=== PATIENT | female | born 1970 | race Caucasian/White ===

== ENCOUNTER 2023-11-15 18:22 | Emergency (ER) | payer OTHER, SELFPAY ==
[2023-11-15 18:24] VITALS: BP 133/92; BMI 27.4
--- NOTE | 2023-11-15 19:05 | ED.MUSCINJ ---
HPI-Injury
General
Chief Complaint: Extremity Pain (non-traumatic)
Time Seen by Provider: 11/15/23 18:59
Travel History
Have you had any contact with someone who has COVID-19?: No
Do you have any symptoms of coronavirus? Fever > 100 degrees, chills, cough, shortness of breath, sore throat, loss of taste or smell, muscle aches, or headache?: No
History of Present Illness-Injury
Initial Injury comments:
53-year-old female with no reported chronic medical problems here today for evaluation of left ankle pain x 1 day. She does not specifically recall any injuries but feels she may have incidentally sprained her ankle. Pain is noted laterally. No
pain noted elsewhere. No fevers. She has been able to ambulate. No numbness/tingling.
Past History
Past History
ED Past Medical History: Psychiatric (A/D, ADHD) and Other (fibroids)
ED Past Surgical History: Cholecystectomy and
Social History
Tobacco: Smoker
Alcohol: None
Drug: None
Review of Systems
Review of Systems
All Other Systems: ROS reviewed and negative except as documented in HPI and ROS
Phy Exam
Physical Exam
Physical Exam:
GENERAL: Alert , in no apparent distress
EYE: pupils equal and reactive
NECK: Supple, no significant adenopathy.
ENT: o/p clr, mmm.
CARDIAC: Regular rate and rhythm .
LUNGS: Clear breath sounds bilaterally, no acute respiratory distress, no wheezes/rales/rhonchi
NEUROLOGICAL: Alert and oriented, no focal neuro deficits
SKIN: Warm and dry, skin intact.
MUSCULOSKELETAL: Mild tenderness to palpation along the lateral aspect of the left ankle joint with a small amount of swelling, no ecchymosis, no tenderness elsewhere, pulses 2+ throughout, sensation and motor intact
PSYCH: Normal and appropriate interaction.
Injury Course
Orders/Labs/Results
Orders:
Orders
11/15/23 18:26
Ankle, left 3 view CR [CR Ankle - Left Min 3 Views ] Urgent
Comment:
Reason For Exam: pain
11/15/23 20:11
Ortho Boot Left- Treatment ONCE
Short or tall?: Short
MDM/Problems Addressed
Differential Diagnosis Includes:
53-year-old female with no reported chronic medical problems here today for evaluation of left ankle pain x 1 day. Overall, patient appears well. Physical examination described above. Patient neurologically intact. Will begin with x-rays.
11/15/2023 20:14: X-rays negative aside from swelling. No fracture. Will place patient in a walking boot and recommend supportive care, RICE, and orthopedic follow-up. All questions answered. Stable for discharge.
*Critical Care Note
Total Time (30-74mins, 75-104mins- exclusive of procedures): Not Applicable
ED Attending Note
-
Portions of this chart may have been created with voice recognition software.� Occasional wrong word or��sound alike� substitutions may have occurred due to the inherent limitations of voice recognition software.
Discharge Plan
Departure
Patient Disposition: Home (Routine Discharge)
Date of Disposition: 11/15/23
Time of Disposition: 20:11
Patient with high blood pressure during this ER visit?: No
Condition: Good
Covid-19: Not Applicable
Discharge Problem:
Acute left ankle pain, Left ankle swelling
Instructions: Ankle Sprain ED
Prescriptions:
No Action
clonazepam 0.5 MG tablet
0.5 mg PO DAILY PRN (Reason: anxiety)
dextroamphetamine-amphetamine [Adderall XR] 20 MG capsule,extended release 24hr
20 mg PO DAILY
escitalopram oxalate 20 MG tablet
20 mg PO DAILY
gabapentin [Gralise] 600 MG tablet extended release 24 hr
600 mg PO QID
benzonatate 100 mg capsule
100 mg PO TID PRN (Reason: cough) Qty: 20 0RF
meloxicam 15 mg tablet
15 mg PO DAILY Qty: 20 0RF
Referrals:
Juan Lr MD [Active] - Follow up in 5-7 days
NONE,* [Active] -
Activity Restrictions/Additional Instructions:
You were seen today for evaluation of ankle pain.
Your x-ray reveals swelling without fracture.
We are placing you in a boot. Avoid prolonged walking and standing.
Apply ice to the area. Take [id number] ibuprofen and Tylenol as directed as needed.
Follow-up with orthopedics within 5 to 7 days for close reevaluation.
Return for new, worsening, or concerning symptoms.
Interventions
Interventions:
*Risk Screen - Suicide Last Done: 11/15/23 18:24
*General Assessment Last Done: 11/15/23 19:09
*Neglect/Abuse Screening Last Done: 11/15/23 18:24
*ED COVID-19 Vaccine History Last Done: 11/15/23 18:24
ED-Musculoskeletal Assessment Last Done: 11/15/23 19:03
ED-Peripheral Vascular Assessment Last Done: 11/15/23 19:03
ED-Skin Assessment Last Done: 11/15/23 19:03
Discharge Date and Time
Print Language: LAO
== END 2023-11-15 20:40 | disposition home or self-care (01) ==
LOC: EMR 18:22
PROVIDERS: EMERGENCY PHYSICIAN Emergency Medicine; FAMILY PHYSICIAN Family Medicine
DX: M25.572 Pain in left ankle and joints of left foot (principal); M25.472 Effusion, left ankle; F17.200 Nicotine dependence, unspecified, uncomplicated
CPT/HCPCS: 99283; 73610

== ENCOUNTER → 2023-12-11 13:46 | Outpatient (REF) | payer OTHER, SELFPAY | LOC: HWRAD 13:46 | PROVIDERS: ATTENDING PHYSICIAN Obstetrics & Gynecology; FAMILY PHYSICIAN Family Medicine | DX: D18.03 Hemangioma of intra-abdominal structures (principal); N83.291 Other ovarian cyst, right side; Z12.31 Encounter for screening mammogram for malignant neoplasm of breast | CPT/HCPCS: 76830; 76856 ==